=== PATIENT | male | born 1990 | race Caucasian/White ===

== ENCOUNTER 2021-12-26 20:15 | Emergency (ER) | payer BC ==
[~2021-12-26] VITALS: Ht 167.6 cm; Wt 104.3 kg
[2021-12-26 20:18] VITALS: BP_SYST 141
[2021-12-26 21:27] LABS: BASOPHILS % (AUTO) 0.3 % (0.0-2.0); EOSINOPHILS # (AUTO) 0.2 K/uL (0.0-0.4); EOSINOPHILS % (AUTO) 3.4 % (0.0-4.0); HEMATOCRIT 44.6 % (36-54); LYMPHOCYTES # (AUTO) 2.2 K/uL (1.0-5.5); MEAN CORPUSCULAR HEMOGLOBIN 29 pg (27-31); MEAN CORPUSCULAR HGB CONC 34 % (32-36); MEAN CORPUSCULAR VOLUME 86 fL (79.0-98.0); MONOCYTES # (AUTO) 0.5 K/uL (0.0-1.0); MONOCYTES % (AUTO) 6.5 % (1.7-9.3); NEUTROPHILS # (AUTO) 4.3 K/uL (1.8-7.7); NEUTROPHILS % (AUTO) 58.8 % (40.0-70.0); PLATELET COUNT (AUTO) 184 K/uL (130-430); RED BLOOD CELL COUNT(AUTO) 5.18 MIL/uL (4.2-6.2); RED CELL DISTRIBUTION WIDTH 13.8 % (9.0-15.0); WHITE BLOOD COUNT (AUTO) 7.2 K/uL (4.8-10.8)
[2021-12-26 21:31] LABS: ANION GAP 12 (5-15); CALCIUM 10.2 mg/dL (8.4-11.0); CHLORIDE 101 mmol/L (98-107); CREATININE 1.11 mg/dL (0.55-1.30); GLUCOSE 89 mg/dL (70-99); POTASSIUM 3.6 mmol/L (3.5-5.1); SODIUM SERUM 139 mmol/L (136-145); UREA NITROGEN, BLOOD 17 mg/dL (8-21)
[2021-12-26 21:32] LABS: GFR AFRICAN AMERICAN 99 mL/min (>90)
[2021-12-26 21:39] LABS: ALANINE AMINOTRANSFERASE 38 U/L (12-78); ALBUMIN 4.3 g/dL (3.4-4.8); ASPARTATE AMINOTRANSFERASE 19 U/L (10-37); LIPASE 89 U/L (73-393); TOTAL BILIRUBIN 0.4 mg/dL (0.0-1.0)
[2021-12-26] MEDS ORDERED: ONDANSETRON 4 MG ODT TAB PO ONE (22:00)
[2021-12-27] VITALS: BP_SYST 121
== END 2021-12-27 00:38 | disposition home or self-care (01) ==
LOC: SED 20:15
DX: R07.9 Chest pain, unspecified (principal); K29.70 Gastritis, unspecified, without bleeding
CPT/HCPCS: 36415; 71045; 80053; 83690; 83880; 84484; 85025; 93005; 99285; Q0162

== ENCOUNTER 2022-01-11 09:09 | Emergency (ER) | payer BC ==
[~2022-01-11] VITALS: Ht 175.3 cm; Wt 102.1 kg
[2022-01-11 09:15] VITALS: BP_SYST 114
--- NOTE | 2022-01-11 09:15 | NUR ---
Placed in room 2 . Placed on education research analyst, blood pressure machine and pulse oximeter. To gown for exam. Side rails up.
--- NOTE | 2022-01-11 09:20 | NUR ---
PT CAME IN FROM HOME C/O UPPER ABD PAIN X 2 MONTHS. STATES HE HAS A GI APPT IN 3 WEEKS BUT PAIN HAS INCREASED. DENIES N/V/D. PT IS AMBULATORY, AAOX4, VSS
--- NOTE | 2022-01-11 10:00 | NUR ---
ER DR. MUNSON AT THE BEDSIDE EXAMINING PT
[2022-01-11] MEDS ORDERED: MAG HYDROX/AL HYDROX/SIMETH 30 ML, DICYCLOMINE HCL 20 MG, LIDOCAINE VISCOUS 2% 15ML (PO... PO ONE ×3 (10:15)
[2022-01-11 11:06] LABS: BASOPHILS % (AUTO) 0.6 % (0.0-2.0); EOSINOPHILS # (AUTO) 0.3 K/uL (0.0-0.4); EOSINOPHILS % (AUTO) 4.6 % (0.0-4.0); HEMOGLOBIN 14.5 g/dL (14.0-18.0); LYMPHOCYTES # (AUTO) 1.6 K/uL (1.0-5.5); LYMPHOCYTES % (AUTO) 30.4 % (20.5-51.5); MEAN CORPUSCULAR HEMOGLOBIN 29 pg (27-31); MEAN CORPUSCULAR HGB CONC 33 % (32-36); MEAN CORPUSCULAR VOLUME 87 fL (79.0-98.0); MONOCYTES # (AUTO) 0.4 K/uL (0.0-1.0); MONOCYTES % (AUTO) 7.3 % (1.7-9.3); NEUTROPHILS # (AUTO) 3.1 K/uL (1.8-7.7); NEUTROPHILS % (AUTO) 57.1 % (40.0-70.0); PLATELET COUNT (AUTO) 159 K/uL (130-430); RED BLOOD CELL COUNT(AUTO) 5.06 MIL/uL (4.2-6.2); RED CELL DISTRIBUTION WIDTH 13.9 % (9.0-15.0); WHITE BLOOD COUNT (AUTO) 5.4 K/uL (4.8-10.8)
--- NOTE | 2022-01-11 11:30 | NUR ---
pt with radiology for chest xray
[2022-01-11 11:45] LABS: CREATININE 0.8 mg/dL (0.55-1.30); POTASSIUM 4.4 mmol/L (3.5-5.1)
--- NOTE | 2022-01-11 11:45 | NUR ---
pt pain level has subsided from 10 to 4 . GI cocktail effective.
[2022-01-11 12:04] LABS: CALCIUM 9.5 mg/dL (8.4-11.0); TOTAL BILIRUBIN 0.4 mg/dL (0.0-1.0)
[2022-01-11] MEDS ORDERED: MAG10ORA PO (12:27)
[2022-01-11] MEDS ORDERED: LORA-258 PO (12:27)
--- NOTE | 2022-01-11 14:32 | NUR ---
Patient given written and verbal discharge instructions and verbalizes understanding. ER MD discussed with patient the results and treatment provided. Patient in stable condition. ID arm band removed. IV catheter removed intact and dressing applied, no active bleeding. Rx of ativan and Mylanta given. Patient educated on pain management and to follow up with PMD. Pain Scale 2 of 10. Opportunity for questions provided and answered. Medication side effect fact sheet provided.
[2022-01-11 14:34] VITALS: BP_SYST 148
== END 2022-01-11 14:34 | disposition home or self-care (01) ==
LOC: SED 09:09
DX: R10.10 Upper abdominal pain, unspecified (principal)
CPT/HCPCS: 36415; 74018; 80053; 83690; 85025; 99284; J2001